=== PATIENT | male | born 1970 | race Caucasian/White ===

== ENCOUNTER 2018-07-25 17:17 | Emergency (ER) | payer BC ==
[~2018-07-25] VITALS: Ht 172.7 cm; Wt 90.7 kg
[2018-07-25 18:19] LABS: BASOPHILS % (AUTO) 0.8 % (0.0-2.0); EOSINOPHILS % (AUTO) 0.5 % (0.0-7.0); HEMATOCRIT 35.5 % (36.7-47.1); HEMOGLOBIN 12.4 g/dL (12.5-16.3); LYMPHOCYTES # (AUTO) 1.6 K/uL (20.0-40.0); MEAN CORPUSCULAR HEMOGLOBIN 31.2 uug (23.8-33.4); MEAN CORPUSCULAR HGB CONC 35 g/dL (32.5-36.3); MEAN CORPUSCULAR VOLUME 89.5 fL (73.0-96.2); MONOCYTES # (AUTO) 0.2 K/uL (2.0-10.0); MONOCYTES % (AUTO) 3.8 % (0.0-11.0); NEUTROPHILS # (AUTO) 3.5 K/uL (1.8-8.9); NEUTROPHILS % (AUTO) 65.9 % (38.5-71.5); PLATELET COUNT (AUTO) 345 K/uL (152-348); RED BLOOD CELL COUNT(AUTO) 3.96 MIL/uL (4.06-5.63); WHITE BLOOD COUNT (AUTO) 5.4 K/uL (3.6-10.2)
--- NOTE | 2018-07-25 18:34 | NUR ---
urine sent to lab, pt resting, no distress noted.
[2018-07-25 18:35] LABS: ALANINE AMINOTRANSFERASE 72 U/L (16-63); ALKALINE PHOSPHATASE 74 U/L (50-136); ASPARTATE AMINOTRANSFERASE 24 U/L (15-37); BILIRUBIN,DIRECT 0.1 mg/dL (0.0-0.2); BILIRUBIN,TOTAL 0.4 mg/dL (0.2-1.0); CARBON DIOXIDE 27 mmol/L (21-32); CHLORIDE 104 mmol/L (98-107); GLUCOSE 143 mg/dL (74-106); TOTAL PROTEIN, SERUM 6.7 g/dL (6.4-8.2); UREA NITROGEN, BLOOD 13 mg/dL (7-18)
[2018-07-25 18:43] LABS: POTASSIUM 2.8 mmol/L (3.5-5.1)
[2018-07-25 18:44] LABS: ACETAMINOPHEN < 2.0 ug/mL (10-30)
[2018-07-25 18:51] LABS: ETHANOL 235 MG/DL (0-0)
[2018-07-25 19:02] LABS: *AMPHETAMINE, URINE NEGATIVE (NEGATIVE); *BARBITURATE, URINE NEGATIVE (NEGATIVE); *BILIRUBIN,URIN NEGATIVE (NEGATIVE); *BLOOD, URINE NEGATIVE (NEGATIVE); *CANNABINOID, URINE NEGATIVE (NEGATIVE); *CLARITY,URINE CLEAR (CLEAR); *COCCAINE, URINE NEGATIVE (NEGATIVE); *COLOR,URINE YELLOW (YELLOW); *KETONES,URINE NEGATIVE (NEGATIVE); *OPIATE, URINE NEGATIVE (NEGATIVE); *PHENCYCLIDINE SCREEN,URINE NEGATIVE (NEGATIVE); *PROTEIN,URINE NEGATIVE (NEGATIVE); *UROBILINOGEN,URINE 0.2 E.U./dl (NORMAL); LEUKOCYTE ESTERASE ,URINE NEGATIVE (NEGATIVE); NITRITE, URINE NEGATIVE (NEGATIVE); PH,URINE 6.5 (5.0-8.0); UGLUCOSE NEGATIVE (NEGATIVE)
--- NOTE | 2018-07-25 19:15 | NUR ---
[facility] REPORT TO PM SHIFT.
[2018-07-25 19:24] LABS: WBC,URINE 0-3 /HPF (0-3)
[2018-07-25 19:25] LABS: MUCUS,URINE FEW /LPF (0-FEW)
--- NOTE | 2018-07-25 19:30 | NUR ---
Pt out of bed, eloped ER. Placed call to security, pt found to be in classroom. Per security, bringing pt back. Nursing environmental services supervisor notified. ER notified.
--- NOTE | 2018-07-25 19:40 | NUR ---
Pt returned to room by RN. Discharged from ER. Pt referred to [facility] as outpatient per pt request.
[2018-07-25] MEDS ORDERED: POTASSIUM CHLORIDE 20 MEQ TAB.PRT.SR ONE (19:43)
[2018-07-25] MEDS: POTASSIUM CHLORIDE 20 MEQ TAB.PRT.SR PO ONE (19:44)
--- NOTE | 2018-07-25 19:44 | NUR ---
Patient discharged to home in stable conditon. Written and verbal after care instructions given. Patient verbalizes understanding of instructions. Pt ambulated out of ER in steady gait. All belongings with pt. VSS. Awake, alert, oriented.
[2018-07-25 19:47] VITALS: BP 141/72
== END 2018-07-25 19:47 | disposition home or self-care (01) ==
LOC: ER 17:19
DX: E87.6 Hypokalemia (principal); F19.10 Other psychoactive substance abuse, uncomplicated
CPT/HCPCS: 36415; 80048; 80076; 80307; 81001; 85025; 99284; G0480 ×2; G0481; A4663